=== PATIENT | female | born 2000 | race African-American/Black ===

== ENCOUNTER 2025-01-17 16:44 | Day surgery (SDC) | payer OTHER ==
[2025-01-17] MEDS ORDERED: hydrALAZINE 20 MG/ML VIAL SLOW IVP PRN (17:40)
[2025-01-17] MEDS ORDERED: Acetaminophen 500 MG TAB PO SCH (18:15)
== END 2025-01-17 18:37 | disposition home or self-care (01) ==
LOC: CSHLD/OP 16:44
PROVIDERS: ATTEND Family Medicine
DX: O36.8130 Decreased fetal movements, third trimester, not applicable or unspecified (principal); O99.891 Other specified diseases and conditions complicating pregnancy; R10.2 Pelvic and perineal pain; R11.0 Nausea; Z3A.32 32 weeks gestation of pregnancy; Z79.899 Other long term (current) drug therapy
CPT/HCPCS: 76819; 99282